=== PATIENT | male | born 1995 | race African-American/Black ===

== ENCOUNTER 2021-01-09 19:35 | Emergency (ER) | payer MEDICAID ==
[~2021-01-09] VITALS: Ht 177.8 cm; Wt 82.0 kg
[2021-01-09] MEDS ORDERED: MORPHINE SULFATE 4 MG/ML CPJ (NOT FOR IM USE) IV STA (20:08)
[2021-01-09] MEDS ORDERED: PIPERACILLIN/TAZ 3.375G PREMIX 50 ML IV ONE (20:15)
[2021-01-09] MEDS ORDERED: SODIUM CHLORIDE 0.9% 1000ML BAG (SEPSIS BOLUS) IV ONE ×2 (20:15→22:30)
[2021-01-09 20:55] LABS: BG BASE EXCESS -0.9 mmol/L (-2.0-2.0); BG CARBOXYHEMOGLOBIN 0.3 % (0.5-1.5); BG DEOXYHEMOGLOBIN 27.2 % (0.0-5.0); BG FRACTION INSPIRED OXYGEN 21; BG HCO3 ACT 22.8 mmol/L (22.0-26.0); BG METHEMOGLOBIN 0.4 % (0.0-1.5); BG OXYGEN SATURATION 72.6 % (92.0-98.5); BG OXYHEMOGLOBIN 72.1 % (94.0-97.0); BG PCO2 34.2 mmHg (35.0-45.0); BG PH 7.442 (7.350-7.450); BG PO2 45.8 mmHg (75.0-100.0); BG SAMPLE SITE LEFT RADIAL; BG TOTAL HEMOGLOBIN 9.6 g/dL (12.0-18.0)
[2021-01-09 22:03] LABS: HEMATOCRIT. 27.6 % (42.0-52.0); HEMOGLOBIN. 8.3 g/dL (14.0-18.0); MEAN CORPUSCULAR HEMOGLOBIN 26.1 pg (28.0-32.0); MEAN CORPUSCULAR VOLUME 87.1 fL (80.0-94.0); RED BLOOD CELL COUNT 3.17 mill/uL (4.7-6.1)
[2021-01-09 22:08] LABS: CHLORIDE 102 mEq/L (98-107)
[2021-01-09 22:23] LABS: MEAN PLATELET VOLUME 10.4 fl (7.4-10.4); PLATELET 74 x1000/uL (130-400)
[2021-01-09 22:29] LABS: NUCLEATED RED BLOOD CELLS 1 /100 WBC; PLATELET ESTIMATE DECREASED
[2021-01-09] MEDS ORDERED: FUROSEMIDE 100MG/10ML VIAL IV STA (22:37)
[2021-01-09] MEDS ORDERED: SODIUM BICARBONATE 8.4% 1 MEQ/ML 50ML SYR IV ONE (22:45)
[2021-01-09] MEDS ORDERED: SODIUM POLYSTYRENE SULFONATE 15 G/60 ML BOT PO ONE (22:45)
[2021-01-09] MEDS ORDERED: ALBUTEROL (0.083%) 2.5MG/3ML NEB HHN ONE (22:45)
[2021-01-09] MEDS ORDERED: CALCIUM CHLORIDE 1GM/10ML SYR IV ONE (22:45)
[2021-01-09] MEDS ORDERED: DEXTROSE 50% WATER 50ML SYRINGE IV ONE (22:45)
[2021-01-09] MEDS ORDERED: INSULIN REGULAR (HUMULIN R) 300UNITS/3ML VIAL IV ONE (22:45)
[2021-01-09] MEDS ORDERED: IOHEXOL-350 100 ML BOTTLE ONE (23:18)
[2021-01-09 23:47] LABS: CHLORIDE 105 mEq/L (98-107)
[2021-01-09 23:52] LABS: PHOSPHORUS 3.1 mg/dL (2.5-4.9)
[2021-01-10 00:21] LABS: CLARITY URINE CLOUDY (CLEAR); COLOR URINE YELLOW (YELLOW); KETONES URINE NEGATIVE (NEGATIVE); LEUKOCYTE ESTERASE URINE NEGATIVE (NEGATIVE); NITRITE URINE NEGATIVE (NEGATIVE); OCCULT BLOOD URINE NEGATIVE (NEGATIVE); PROTEIN URINE TRACE (NEGATIVE); SPECIFIC GRAVITY URINE 1.032 (1.005-1.030); UROBILINOGEN URINE 0.2 E.U./dL (0.2-1.0)
[2021-01-10 00:38] LABS: *AMPHETAMINES SCREEN URINE NEGATIVE (NEGATIVE); *BARBITURATES SCREEN URINE NEGATIVE (NEGATIVE); *BENZODIAZEPINES SCREEN URINE NEGATIVE (NEGATIVE); *COCAINE SCREEN URINE NEGATIVE (NEGATIVE); OPIATES URINE SCREEN PRESUMTIVE POSITIVE (NEGATIVE)
[2021-01-10 00:39] LABS: CANNABINOID URINE SCREEN NEGATIVE (NEGATIVE); METHADONE URINE SCREEN NEGATIVE (NEGATIVE); PHENCYCLIDINE URINE SCREEN NEGATIVE (NEGATIVE)
[2021-01-10] MEDS ORDERED: LORAZEPAM 2MG/ML CPJ IV ONE (01:15)
[2021-01-10] MEDS ORDERED: VANCOMYCIN 1 G PREMIX 200 ML IV SCH (01:30)
[2021-01-10] MEDS ORDERED: SODIUM CHLORIDE 0.9% 1000ML BAG (SEPSIS BOLUS) IV ONE (01:45)
[2021-01-10 03:10] LABS: CHLORIDE 107 mEq/L (98-107)
[2021-01-10] MEDS ORDERED: ACETAMINOPHEN 325MG TABLET PO ONE (15:00)
[2021-01-10 17:30] VITALS: BP 137/87
[2021-01-10] MEDS ORDERED: ACETAMINOPHEN 650MG/20.3ML UDC PO ONE (17:45)
== END 2021-01-10 18:43 | disposition short-term general hospital (02) ==
LOC: ER 19:35
DX: C92.00 Acute myeloblastic leukemia, not having achieved remission (principal); E87.5 Hyperkalemia; A41.9 Sepsis, unspecified organism
CPT/HCPCS: 36415; 36600; 70491; 71045; 71275; 80048; 80053; 80305; 81003; 82375; 82805; 82962; 83605; 83615; 84100; 84145; 84484; 84550; 85025; 87040; 93005; 94640; 99291; J1815; J1940; J2060; J2270; J2543; J3370; J3490; J7030; J7040; Q9967; Z7610